=== PATIENT | male | born 2000 | race Caucasian/White ===

== ENCOUNTER 2021-07-04 11:52 | Emergency (ER) | payer OTHER ==
--- NOTE | 2021-07-04 12:54 | CR ---
Forearm 2V Rt CLINICAL HISTORY: Pain FINDINGS: There is no acute fracture within the forearm. There is some soft tissue swelling in the mid dorsal forearm IMPRESSION: Soft tissue swelling No fracture
[2021-07-04] MEDS ORDERED: Acetaminophen/oxyCODONE 325-5 MG Tab PO ONE (13:30)
[2021-07-04] MEDS ORDERED: Diphtheria,Pertussis(Acell),Tetanus Vaccine 0.5 ML Syringe IM ONE (13:31)
[2021-07-04] MEDS ORDERED: Bacitracin Oint 1 GM U/D Packet TOP ONE (13:32)
--- NOTE | 2021-07-04 13:33 | EDM.PDOC ---
ED HPI GENERAL MEDICAL PROBLEM - General Chief Complaint: Upper Extremity Injury/Pain Stated Complaint: RT ARM CUT Time Seen by Provider: 07/04/21 13:32 Source of Information: Reports: Patient History Limitations: Reports: No Limitations - History of Present Illness INITIAL COMMENTS - FREE TEXT/NARRATIVE: pt had a very heavy fish house fall on his rt ar. He was having severe pain on arrival. An xray was obtained which did not reveal a fracture. He has bleeding where he had a puncture wound. He is not up to date with his tetanus. Onset: Today, Sudden Duration: Hour(s): Location: Reports: Upper Extremity, Right Associated Symptoms: Reports: No Other Symptoms Right Arm Pain Score (Numeric/FACES): 10 - Related Data Allergies Allergy/AdvReac Type Severity Reaction Status Date / Time No Known Allergies Allergy Verified 07/04/21 12:25 Home Meds: Home Meds Escitalopram [Lexapro] 20 mg PO DAILY 07/04/21 [History] Past Medical History Musculoskeletal History: Reports: Fracture - Past Surgical History HEENT Surgical History: Reports: Tonsillectomy Musculoskeletal Surgical History: Reports: Shoulder Surgery Social & Family History - Tobacco Use Tobacco Use Status *Q: Light Tobacco User Years of Tobacco use: 1 Packs/Tins Daily: 0.5 - Caffeine Use Caffeine Use: Reports: Coffee - Alcohol Use Days Per Week of Alcohol Use: 5 Number of Drinks Per Day: 4 Total Drinks Per Week: 20 - Recreational Drug Use Recreational Drug Use: No Review of Systems - Review of Systems Review Of Systems: See Below Constitutional: Reports: No Symptoms Eyes: Reports: No Symptoms Ears: Reports: No Symptoms Nose: Reports: No Symptoms Mouth/Throat: Reports: No Symptoms Respiratory: Reports: No Symptoms Cardiovascular: Reports: No Symptoms GI/Abdominal: Reports: No Symptoms Genitourinary: Reports: No Symptoms Musculoskeletal: Reports: Other (pt arrived with severe pain in the rt forearm. ) ED EXAM, GENERAL - Physical Exam Exam: See Below Free Text/Narrative:: pt was unloading a heavy fish house and it skidded accross his rt forearm. He is having severe pain in the arm. He had 2 puncture wounds 1/8 inch each in length. One was bleeding quite readily. Exam Limited By: No Limitations General Appearance: Alert, Anxious, Other (pt was not willing to stay and have the areas stichwed up and have care of the arm. ) Extremities: Other ( rt arm is swollen. There are 2 puncture wounds one is bleeding. He has good pulses. An xray was obtained which did not reveal a fracture. ) Neurological: Alert, Oriented, Normal Cognition Course - Vital Signs Last Recorded V/S: Last Vital Signs Temp 37.1 C 07/04/21 12:23 Pulse 68 07/04/21 12:23 Resp 18 07/04/21 12:23 BP 143/89 H 07/04/21 12:23 Pulse Ox 98 07/04/21 12:23 - Orders/Labs/Meds Orders: Active Orders 24 hr Category Date Time Status Vaccine to be Administered/Admin Charge [RC] ASDIRECTED Care 07/04/21 13:31 Active Meds: Medications Discontinued Medications Generic Name Dose Route Start Last Admin Trade Name Freq PRN Reason Stop Dose Admin Bacitracin 1 dose 07/04/21 13:32 07/04/21 13:48 Bacitracin Oint 1 Gm U/D Packet TOP 07/04/21 13:33 1 dose ONETIME ONE Administration Diphtheria/Tetanus/Acell Pertussis 0.5 ml 07/04/21 13:31 07/04/21 13:47 Diphtheria,Pertussis(Acell),Tetanus Vaccine 0.5 Ml Syringe IM 07/04/21 13:32 0.5 ml .ONCE ONE Administration Lidocaine HCl 5 ml 07/04/21 13:31 Lidocaine 1% 5 Ml Sdv INJECT 07/04/21 13:32 ONETIME ONE Oxycodone/Acetaminophen 1 tab 07/04/21 13:30 07/04/21 13:47 Acetaminophen/Oxycodone 325-5 Mg Tab PO 07/04/21 13:31 Not Given ONETIME ONE - Re-Assessments/Exams Free Text/Narrative Re-Assessment/Exam: 07/04/21 14:00 pt refused stitches, he was cleaned and dressed with bacatracin, he was given a tdap. Departure - Departure Time of Disposition: 13:49 Disposition: Home, Self-Care 01 Condition: Fair Clinical Impression: Puncture wound, Traumatic hematoma of right forearm - Discharge Information Referrals: PCP,Unknown [Primary Care Provider] - Forms: ED Department Discharge Care Plan Goals: pt incistd on leaving before the puncture wound is closed. He was given a tetanus-tdap, keflex 500mg tid, norco 5/325 q6h prn for pain cool pack to arm, elevate arm, do range of motion to avoid stiffing. change dressing daily and apply bacatracin to the area. Pt did not stay to finish the visit. Sepsis Event Note (ED) - Evaluation Sepsis Screening Result: No Definite Risk - Focused Exam Vital Signs: Vital Signs Temp Pulse Resp BP Pulse Ox 07/04/21 12:23 37.1 C 68 18 143/89 H 98 - My Orders Last 24 Hours: My Active Orders 07/04/21 13:31 Vaccine to be Administered/Admin Charge [RC] ASDIRECTED - Assessment/Plan Last 24 Hours: My Active Orders 07/04/21 13:31 Vaccine to be Administered/Admin Charge [RC] ASDIRECTED
== END 2021-07-04 14:00 | disposition home or self-care (01) ==
LOC: JP.ED 11:52
DX: S51.831A Puncture wound without foreign body of right forearm, initial encounter (principal); Z72.0 Tobacco use; Z23 Encounter for immunization; W26.8XXA Contact with other sharp object(s), not elsewhere classified, initial encounter; W18.39XA Other fall on same level, initial encounter
CPT/HCPCS: 73090-26-RT; 73090-RT; 90471; 90715; 99283-25